=== PATIENT | female | born 1935 | race Caucasian/White ===

== ENCOUNTER → 2017-07-29 | Outpatient (CLI) | payer MEDICARE, OTHER ==
[~2017-07-29] MED LIST: GADOBUTROL 7.5 MMOL/7.5 ML VIAL ONE; LEVO112T2; METO25TA2
== END | disposition home or self-care (01) ==
LOC: CFH 14:29
PROVIDERS: ATTEND Neurological Surgery
DX: D43.4 Neoplasm of uncertain behavior of spinal cord (principal); M47.895 Other spondylosis, thoracolumbar region; M47.896 Other spondylosis, lumbar region
CPT/HCPCS: 72158; A9585